=== PATIENT | male | born 1980 | race American Indian/Alaskan Native ===

== ENCOUNTER 2017-05-30 22:34 | Inpatient (IN) | payer OTHER ==
[2017-05-30] MEDS ORDERED: PROVENTIL IH ONE (23:25)
[2017-05-30 23:50] LABS: Basophils % (Auto) 0.4 % (0.0-1.8); Eosinophils % (Auto) 2.2 % (0.0-4.3); Hematocrit 44.3 % (35.5-45.6); Hemoglobin 14.1 gm/dl (11.8-15.2); Mean Corpuscular HGB Conc 32 % (32-34); Mean Corpuscular Hemoglobin 30 pg (28-32); Mean Corpuscular Volume 95 fl (84-94); Platelet Count 261 K/mm3 (140-440); Red Blood Count 4.68 M/mm3 (3.65-5.03); Red Cell Distribution Width 13.6 % (13.2-15.2); White Blood Count 11.7 K/mm3 (4.5-11.0)
[2017-05-31 00:07] LABS: Anion Gap 20 mmol/L; Blood Urea Nitrogen 15 mg/dL (9-20); Carbon Dioxide 26 mmol/L (22-30); Chloride 100.7 mmol/L (98-107); Glucose 117 mg/dL (75-100); Potassium 3.8 mmol/L (3.6-5.0); Sodium 143 mmol/L (137-145)
--- NOTE | 2017-05-31 01:17 | Emergency Department Report ---
HPI - General Chief Complaint: Adult Asthma Time Seen by Provider: 05/30/17 23:22 - HPI HPI: This is a 36-year-old Lebanese male presents to the emergency department by EMS from home with complaint of shortness of breath and probable asthma exacerbation. The patient was found at that time to have some tripoding, speaking in short sentences, wheezing and had a pulse ox of 84% on room air. In route he was given 2 g of magnesium sulfate, 125 mg of Solu-Medrol and a 10 mg albuterol treatment. On presentation to the emergency department here he is feeling improved. He denies any fever, chest pain, nausea, vomiting or diaphoresis. He does have a diagnosed history of asthma. He does not have any albuterol inhaler and nebulizer machine at home to use and therefore did not take anything prior to presentation. The patient was at another hospital a few days ago for similar symptoms. He says he has required admission for asthma in the past but never has required intubation. No recent travel or sick contacts at home. He does not have a primary care physician. He says that he is a former smoker having quit 2 weeks ago. ED Past Medical Hx - Past Medical History Previous Medical History?: Yes Hx Asthma: Yes - Surgical History Past Surgical History?: No - Social History Smoking Status: Former Smoker Substance Use Type: Alcohol ED Review of Systems ROS: Stated complaint: ASTHMA Other details as noted in HPI Comment: All other systems reviewed and negative Constitutional: denies: chills, fever Eyes: denies: eye pain, eye discharge, vision change ENT: denies: ear pain, throat pain Respiratory: cough, shortness of breath, wheezing Cardiovascular: denies: chest pain, palpitations Gastrointestinal: denies: abdominal pain, nausea, diarrhea Genitourinary: denies: urgency, dysuria Musculoskeletal: denies: back pain, joint swelling, arthralgia Skin: denies: rash, lesions Neurological: denies: headache, weakness, paresthesias Physical Exam - Physical Exam Vital Signs: Vital Signs 05/30/17 05/30/17 05/31/17 23:44 23:47 00:18 Temperature 98.8 F Pulse Rate 95 H Pulse Rate [ 89 87 Posterior Bilateral Throughout] Respiratory 20 Rate Respiratory 18 18 Rate [Posterior Bilateral Throughout] Blood Pressure 105/60 [Left] O2 Sat by Pulse 90 Oximetry Physical Exam: GENERAL: The patient is well-developed well-nourished. HENT: Normocephalic. Atraumatic. Patient has moist mucous membranes. EYES: Extraocular motions are intact. Pupils equal reactive to light bilaterally. NECK: Supple. Trachea is midline. CHEST/LUNGS: Moderate wheezing throughout the chest. There is tachypnea but no excessive muscle use. No conversational dyspnea.. There is no respiratory distress noted. HEART/CARDIOVASCULAR: Regular. There is no tachycardia. There is no gallop rub or murmur. ABDOMEN: Abdomen is soft, nontender. Patient has normal bowel sounds. There is no abdominal distention. SKIN: Skin is warm and dry. NEURO: The patient is awake, alert, and oriented. The patient is cooperative. The patient has no focal neurologic deficits. The patient has normal speech. MUSCULOSKELETAL: There is no tenderness or deformity. There is no limitation range of motion. There is no evidence of acute injury. ED Course Vital Signs 05/30/17 05/30/17 05/31/17 23:44 23:47 00:18 Temperature 98.8 F Pulse Rate 95 H Pulse Rate [ 89 87 Posterior Bilateral Throughout] Respiratory 20 Rate Respiratory 18 18 Rate [Posterior Bilateral Throughout] Blood Pressure 105/60 [Left] O2 Sat by Pulse 90 Oximetry ED Medical Decision Making - Lab Data Result diagrams: 05/30/17 23:32 05/30/17 23:32 - EKG Data -: EKG Interpreted by Me EKG shows normal: sinus rhythm, axis, intervals, QRS complexes (incomplete right bundle branch block), ST-T waves Rate: normal - EKG Data When compared to previous EKG there are: previous EKG unavailable Interpretation: other (incomplete right bundle branch block) - Radiology Data Radiology results: image reviewed interpreted by me: Chest x-ray shows some hyperinflation of the lungs and possibly some interstitial lung disease but no obvious pneumonia, pleural effusion and no pneumothorax. - Medical Decision Making The patient received 10 mg of albuterol in route, Solu-Medrol and magnesium. He was feeling improved but still had hypoxia upon presentation here. He was given another 10 mg of albuterol and once again he had some improvement of his bronchospasm. He was reevaluated multiple times but continues to sound very tight and unable to have full expirations. His pulse ox will vary between the low 90s and mid 90s. Labs are unremarkable including a negative d-dimer. Chest x-ray appears more consistent with an emphysema/COPD-like picture but does not show any pneumonia or pleural effusions or pneumothorax. The patient does not necessarily appear in respiratory distress but does not appear improved enough for discharge home and would benefit from serial steroids, breathing treatments and further evaluation. He has been accepted for admission by the hospitalist, Dr. Grover. - Differential Diagnosis Asthma, COPD, Pneumonia, PE Critical Care Time: No Critical care attestation.: If time is entered above; I have spent that time in minutes in the direct care of this critically ill patient, excluding procedure time. ED Disposition Clinical Impression: Asthma exacerbation, Bronchospasm Dyspnea Qualifiers: Dyspnea type: unspecified Qualified Code(s): R06.00 - Dyspnea, unspecified Disposition: OP ADMIT IP TO THIS HOSP Is pt being admited?: Yes Condition: Stable Referrals: PRIMARY CARE, [Primary Care Provider] - 3-5 Days Time of Disposition: 01:31
--- NOTE | 2017-05-31 03:27 | History and Physical Report ---
History of Present Illness Date of examination: 05/31/17 Chief complaint: Shortness of breath History of present illness: 36-year-old -[place] male with past medical history significant for asthma presented to the emergency department complaining of wheezing and shortness of breath. Patient also complains of which is productive of clear sputum. Patient denied fever, chills, chest pain. Patient ran out of his albuterol inhaler. Patient's saturation was 84% on presentation. The emergency department patient was treated for asthma exacerbation and patient showed some improvement but still has SOB and admitted to the floor for further evaluation and management. REVIEW OF SYSTEMS: GENERAL: no weight change, no fatigue, no fever HEAD: no head ache EYES: no blurry vision, no acute visual loss EARS: no hearing loss, no discharge, no earache NOSE: no stuffiness, no sneezing, no discharge MOUTH, THROAT AND NECK: no bleeding gums, no sore throat, no swollen neck CARDIAC: no palpitations, no dyspnea on exertion, no orthopnea, no PND, no edema , no chest pain RESPIRATORY: +shortness of breath, + wheeze, +cough, + sputum, no hemoptysis, + asthma GI: no decreased appetite, no nausea, no vomiting, no dysphagia, no diarrhea, no constipation, no abdominal pain URINARY: no change in frequency, no urgency, no polyuria, no hematuria, no incontinence MUSCULOSKELETAL: no muscle weakness, no pain, no joint stiffness NEUROLOGIC: no loss of sensation/numbness, no tingling, no tremors, no weakness/ paralysis HEMATOLOGIC: no anemia, no easy bruising SKIN: no rashes ENDOCRINE: no heat/cold intolerance, no polyuria, no polydipsia, no thyroid problems, no diabetes PSYCHIATRIC: no anxiety, no depression, no suicidal ideations Past History Past Medical History: other (asthma) Past Surgical History: No surgical history Social history: smoking (smoking 2 weeks ago), full code. denies: alcohol abuse , prescription drug abuse, IV drug use Family history: no significant family history Medications and Allergies Allergies Allergy/AdvReac Type Severity Reaction Status Date / Time No Known Allergies Allergy Verified 05/30/17 23:25 Home Medications Medication Instructions Recorded Confirmed Last Taken Type No Known Home Medications [No 05/31/17 05/31/17 Unknown History Reported Home Medications] Active Meds: Active Medications Albuterol/Ipratropium (Duoneb *Not For Prn Use*) 1 ampul IH QIDRT [facility] Heparin Sodium (Porcine) (Heparin) 5,000 unit SUB-Q Q8HR [facility] Methylprednisolone Sodium Succinate (Solu-Medrol) 60 mg IV TID [facility] Exam - Physical Exam Narrative exam: Not in cardiopulmonary distress. The patient appeared well nourished and normally developed. Vital signs as documented. Head exam is unremarkable. No scleral icterus . Neck is without jugular venous distension, thyromegaly, or carotid bruits. Lungs significant for wheezing all over the chest. Cardiac exam reveals regular rate and Rhythm. First and second heart sounds normal. No murmurs, rubs or gallops. Abdominal exam reveals normal bowel sounds, no masses, no organomegaly and no aortic enlargement. Extremities are nonedematous and both femoral and pedal pulses are normal. MEDICAL DEVICE: Alert and oriented 3. No focal weakness. - Constitutional Vitals: Temp Pulse Resp BP Pulse Ox 98.8 F 87 18 105/60 90 05/30/17 23:44 05/31/17 00:18 05/31/17 00:18 05/30/17 23:44 05/30/17 23:44 Results - Labs CBC & Chem 7: 05/30/17 23:32 05/30/17 23:32 Labs: Laboratory Last Values WBC 11.7 K/mm3 (4.5-11.0) H 05/30/17 23:32 RBC 4.68 M/mm3 (3.65-5.03) 05/30/17 23:32 Hgb 14.1 gm/dl (11.8-15.2) 05/30/17 23:32 Hct 44.3 % (35.5-45.6) 05/30/17 23:32 MCV 95 fl (84-94) H 05/30/17 23:32 MCH 30 pg (28-32) 05/30/17 23:32 MCHC 32 % (32-34) 05/30/17 23:32 RDW 13.6 % (13.2-15.2) 05/30/17 23:32 Plt Count 261 K/mm3 (140-440) 05/30/17 23:32 Lymph % (Auto) 5.0 % (13.4-35.0) L 05/30/17 23:32 [place] % (Auto) 3.2 % (0.0-7.3) 05/30/17 23:32 Eos % (Auto) 2.2 % (0.0-4.3) 05/30/17 23:32 Baso % (Auto) 0.4 % (0.0-1.8) 05/30/17 23:32 Lymph # 0.6 K/mm3 (1.2-5.4) L 05/30/17 23:32 [place] # 0.4 K/mm3 (0.0-0.8) 05/30/17 23:32 Eos # 0.3 K/mm3 (0.0-0.4) 05/30/17 23:32 Baso # 0.1 K/mm3 (0.0-0.1) 05/30/17 23:32 Seg Neutrophils % 89.2 % (40.0-70.0) H 05/30/17 23:32 Seg Neutrophils # 10.4 K/mm3 (1.8-7.7) H 05/30/17 23:32 D-Dimer 167.89 ng/mlDDU (0-234) 05/30/17 23:32 Sodium 143 mmol/L (137-145) 05/30/17 23:32 Potassium 3.8 mmol/L (3.6-5.0) 05/30/17 23:32 Chloride 100.7 mmol/L (98-107) 05/30/17 23:32 Carbon Dioxide 26 mmol/L (22-30) 05/30/17 23:32 Anion Gap 20 mmol/L 05/30/17 23:32 BUN 15 mg/dL (9-20) 05/30/17 23:32 Creatinine 1.0 mg/dL (0.8-1.5) 05/30/17 23:32 Estimated GFR > 60 ml/min 05/30/17 23:32 BUN/Creatinine Ratio 15.00 % 05/30/17 23:32 Glucose 117 mg/dL (75-100) H 05/30/17 23:32 Calcium 9.0 mg/dL (8.4-10.2) 05/30/17 23:32 Troponin T < 0.010 ng/mL (0.00-0.029) 05/30/17 23:32 NT-Pro-B Natriuret Pep 54.13 pg/mL (0-450) 05/30/17 23:32 Assessment and Plan Assessment and plan: Acute hypoxic respiratory failure Asthma exacerbation Medication noncompliance - Patient is started on IV Solu-Medrol, DuoNeb, breathing treatments, oxygen support DVT prophylaxis - Heparin Disposition - admit to medical floor Advance Directives: Yes VTE prophylaxis?: Chemical Plan of care discussed with patient/family: Yes
[2017-05-31] MEDS: HEPARIN SUB-Q SCH ×3 (06:00→21:19)
[2017-05-31] MEDS ORDERED: PROVENTIL IH PRN ×2 (09:07→09:45)
--- NOTE | 2017-05-31 09:14 | XRay Report ---
Single view chest: History: Shortness of breath. Findings: Normal cardiomediastinal silhouette. Trachea is midline. No acute consolidation, pneumothorax or pleural effusion. Impression: No acute cardiopulmonary findings.
[2017-05-31] MEDS: DUONEB *Not for PRN Use IH SCH ×4 (11:33→19:43)
--- NOTE | 2017-05-31 14:15 | Event Note ---
Date: 05/31/17 Patient seen and examined to expiratory movement inspiratory but present on both phase of respiration. We'll continue current treatment and monitor.
--- NOTE | 2017-06-01 01:58 | Admit Criteria Form ---
<DINORAH HO - Last Filed: 06/01/17 01:57> Admission Criteria Documentation: ASTHMA Clinical Indications for Admission to Inpatient Care (Amo/check or initial the applicable condition/criteria) Admission is indicated for ANY ONE of the following (1)(2)(3)(4): [ ]I. Ventilatory support required [ ]II. Peak expiratory flow rate less than 25% of predicted or personal best before treatment [ ]III. Peak expiratory flow rate less than 40% of predicted or personal best after treatment [ ]IV. Peak expiratory flow rate between 40% and 60% of predicted or personal best after treatment, and ANY ONE of the following: [ ]a) History of asthma requiring intubation [ ]b) Hospitalization for asthma within the past year [ ]c) Current or recent use of oral corticosteroids for asthma [ ]d) Use of more than 1 canister of inhaled beta2-agonist in past month [ ]e) Exacerbation due to allergic reaction to food [ ]f) Inadequate access to medical care or medications [ ]g) Adherence to post-discharge asthma regimen cannot be assured (eg, psychosocial problems, poor adherence, no available follow-up care) [ ]V. Hypoxemia [ ]. PaCO2 elevation from baseline by 2 mm Hg (0.27 kPa) or greater [ ]VII. Cyanosis [ ]VIII. Silent chest (absent or markedly diminished breath sounds) [ ]IX. Cardiac dysrhythmia (eg, Bradycardia) [ ]X. Hemodynamic instability [ ]XI. Altered mental status [ ]XII. Radiographic evidence of complication requiring inpatient treatment (eg, pneumonia, pneumothorax) [X]XIII. Inpatient admission required[A] rather than observation care because of ANY ONE of the following: [X]a) Respiratory finding that is severe or persistent (eg, dyspnea, Tachypnea, accessory muscle use) [ ]b) Other condition, treatment, or monitoring requiring inpatient admission Extended stay beyond goal length of stay may be needed for (1)(25)(27): [ ]a) Severe respiratory distress or respiratory failure (22)(23)(28)(29) [ ]b) Secondary causes and complications (24) [ ]c) Status asthmaticus [ ]d) Chronic obstructive asthma (eg, asthma-COPD overlap syndrome) (30) [ ]e) Older patients (65 years or older) (28) [ ]f) Slow resolution [ ]g) Clinically significant exacerbation of comorbidities (e.g., congestive heart failure,atrial fibrillation) The original [facility] content created by [employer] has been revised. The portions of the content which have been revised are identified through the use of italic text or in bold, and [facility] has neither reviewed nor approved the modified material. All other unmodified content is copyright [facility] [employer] Please see references footnoted in the original [facility] [employer] edition 2017 Admission Criteria Met: Yes <NILESH IRVING - Last Filed: 06/02/17 09:59> Admission Criteria Documentation: This admission criteria sheet had no bearing on any medical decision making or clinical decisions from the emergency department and full admission vs observational stay will be decided upon by the hospitalist service and any subsequent specialists seeing this patient.
[2017-06-01] MEDS: HEPARIN SUB-Q SCH ×4 (06:08→23:54)
[2017-06-01] MEDS: DUONEB *Not for PRN Use IH SCH ×4 (07:33→20:10)
--- NOTE | 2017-06-01 08:43 | Progress Note ---
Assessment and Plan Assessment and plan: 36-year-old -Norwegian male with past medical history significant for asthma presented to the emergency department complaining of wheezing and shortness of breath. Patient also complains of which is productive of clear sputum. Patient denied fever, chills, chest pain. Patient ran out of his albuterol inhaler. Patient's saturation was 84% on presentation. The emergency department patient was treated for asthma exacerbation and patient showed some improvement but still has SOB and admitted to the floor for further evaluation and management. Acute hypoxic respiratory failure * Check room air oxygen saturation * Continue Nebs Asthma exacerbation * Continue Nebs * Taper steroids * peak flow meter Medication noncompliance * compliance advised and stressed DVT prophylaxis - Heparin Disposition History Interval history: patient seen and examined still with shortness of breath but improved from yesterday Hospitalist Physical - Constitutional Vitals: Temp Pulse Resp BP Pulse Ox 98.6 F 75 18 96/71 96 06/01/17 07:11 06/01/17 07:52 06/01/17 07:52 06/01/17 07:11 06/01/17 07:11 General appearance: Present: no acute distress, well-nourished - EENT Eyes: Present: PERRL, EOM intact ENT: hearing intact, clear oral mucosa - Neck Neck: Present: supple, normal ROM - Respiratory Respiratory effort: normal Respiratory: bilateral: wheezing - Cardiovascular Rhythm: regular Heart Sounds: Present: S1 & S2 - Extremities Extremities: no ischemia, pulses intact, pulses symmetrical, No edema Peripheral Pulses: within normal limits - Abdominal General gastrointestinal: soft, non-tender, non-distended, normal bowel sounds - Integumentary Integumentary: Present: clear, warm, dry - Psychiatric Psychiatric: appropriate mood/affect, intact judgment & insight, cooperative - Neurologic Neurologic: CNII-XII intact - Allied Health Allied health notes reviewed: nursing Results - Labs CBC & Chem 7: 05/30/17 23:32 05/30/17 23:32 Labs: Laboratory Last Values WBC 11.7 K/mm3 (4.5-11.0) H 05/30/17 23:32 RBC 4.68 M/mm3 (3.65-5.03) 05/30/17 23:32 Hgb 14.1 gm/dl (11.8-15.2) 05/30/17 23:32 Hct 44.3 % (35.5-45.6) 05/30/17 23:32 MCV 95 fl (84-94) H 05/30/17 23:32 MCH 30 pg (28-32) 05/30/17 23:32 MCHC 32 % (32-34) 05/30/17 23:32 RDW 13.6 % (13.2-15.2) 05/30/17 23:32 Plt Count 261 K/mm3 (140-440) 05/30/17 23:32 Lymph % (Auto) 5.0 % (13.4-35.0) L 05/30/17 23:32 [place] % (Auto) 3.2 % (0.0-7.3) 05/30/17 23:32 Eos % (Auto) 2.2 % (0.0-4.3) 05/30/17 23:32 Baso % (Auto) 0.4 % (0.0-1.8) 05/30/17 23:32 Lymph # 0.6 K/mm3 (1.2-5.4) L 05/30/17 23:32 [place] # 0.4 K/mm3 (0.0-0.8) 05/30/17 23:32 Eos # 0.3 K/mm3 (0.0-0.4) 05/30/17 23:32 Baso # 0.1 K/mm3 (0.0-0.1) 05/30/17 23:32 Seg Neutrophils % 89.2 % (40.0-70.0) H 05/30/17 23:32 Seg Neutrophils # 10.4 K/mm3 (1.8-7.7) H 05/30/17 23:32 D-Dimer 167.89 ng/mlDDU (0-234) 05/30/17 23:32 Sodium 143 mmol/L (137-145) 05/30/17 23:32 Potassium 3.8 mmol/L (3.6-5.0) 05/30/17 23:32 Chloride 100.7 mmol/L (98-107) 05/30/17 23:32 Carbon Dioxide 26 mmol/L (22-30) 05/30/17 23:32 Anion Gap 20 mmol/L 05/30/17 23:32 BUN 15 mg/dL (9-20) 05/30/17 23:32 Creatinine 1.0 mg/dL (0.8-1.5) 05/30/17 23:32 Estimated GFR > 60 ml/min 05/30/17 23:32 BUN/Creatinine Ratio 15.00 % 05/30/17 23:32 Glucose 117 mg/dL (75-100) H 05/30/17 23:32 Calcium 9.0 mg/dL (8.4-10.2) 05/30/17 23:32 Troponin T < 0.010 ng/mL (0.00-0.029) 05/30/17 23:32 NT-Pro-B Natriuret Pep 54.13 pg/mL (0-450) 05/30/17 23:32 - Imaging and Cardiology Chest x-ray: image reviewed (no acute pathology)
[2017-06-02] MEDS: HEPARIN SUB-Q SCH ×2 (06:06→14:05)
[2017-06-02] MEDS: DUONEB *Not for PRN Use IH SCH ×3 (07:24→13:56)
[2017-06-02 07:59] VITALS: BP 104/65
[2017-06-02] MEDS ORDERED: BROVANA NEBU IH SCH (08:00)
[2017-06-02] MEDS ORDERED: PULMICORT IH SCH (08:00)
--- NOTE | 2017-06-02 10:18 | Discharge Summary ---
Providers - Providers Date of Admission: 05/31/17 03:18 Attending physician: TRACY BIRD MD Primary care physician: [facility]ER[facility]IST Hospitalization Condition: Stable Hospital course: 36-year-old -Micron[place] male with past medical history significant for asthma presented to the emergency department complaining of wheezing and shortness of breath. Patient also complains of which is productive of clear sputum. Patient denied fever, chills, chest pain. Patient ran out of his albuterol inhaler. Patient's saturation was 84% on presentation. The emergency department patient was treated for asthma exacerbation and patient showed some improvement but still has SOB and admitted to the floor for further evaluation and management. Acute hypoxic respiratory failure * Check room air oxygen saturation * Continue Nebs Asthma exacerbation * Continue Nebs * Taper steroids * peak flow meter Medication noncompliance * compliance advised and stressed DVT prophylaxis - Heparin Disposition Disposition: DC-01 TO HOME OR SELFCARE Exam - Constitutional Vitals: Temp Pulse Resp BP Pulse Ox 98.6 F 86 16 104/65 98 06/02/17 07:20 06/02/17 07:38 06/02/17 07:38 06/02/17 07:20 06/02/17 07:37 Plan Activity: advance as tolerated, fall precautions Diet: regular Special Instructions: record daily BP diary Follow up with: PRIMARY CARE, [Primary Care Provider] - 3-5 Days Prescriptions: ALBUTEROL Inhaler [ProAir HFA Inhaler] 2 puff IH QID PRN 30 Days PRN Reason: Shortness Of Breath Prednisone [predniSONE 10 mg (6-Day Pack, 21 Tabs)] 10 mg PO .TAPER #1 tab.ds.pk
== END 2017-06-02 15:30 | disposition home or self-care (01) | DRG 189 ==
LOC: EDBD → ED 22:34 → 3A 05-31 03:18 → UNDODISIN 05-31 09:30 → 3A 05-31 09:45
PROVIDERS: ADMIT Internal Medicine; ATTEND Internal Medicine
DX: J96.01 Acute respiratory failure with hypoxia (principal); J45.901 Unspecified asthma with (acute) exacerbation; Z87.891 Personal history of nicotine dependence; Z91.14 Patient's other noncompliance with medication regimen
CPT/HCPCS: 36415; 71010; 80048; 83880; 84484; 85025; 85379; 93005; 93010; 94640; J1644; J2920

== ENCOUNTER 2019-05-30 09:36 | Emergency (ER) | payer SELFPAY ==
[2019-05-30 10:04] VITALS: BP 95/68
[2019-05-30] MEDS ORDERED: ATROVENT IH ONE (10:43)
[2019-05-30] MEDS ORDERED: PROVENTIL IH ONE (10:43)
--- NOTE | 2019-05-30 10:46 | Emergency Department Report ---
ED Asthma HPI - General Chief Complaint: Adult Asthma Stated Complaint: JUNI Time Seen by Provider: 05/30/19 10:40 Source: patient Mode of arrival: Ambulatory Limitations: No Limitations - History of Present Illness MD Complaint: shortness of breath, wheezing -: days(s) (3) Asthma History: childhood onset Context: none known - Related Data Current Asthma Therapy: inhaled bronchodilator Previous Rx's Medication Instructions Recorded Last Taken Type ALBUTEROL Inhaler (OR & NICU) 2 puff IH QID PRN 30 Days 06/02/17 Unknown Rx [ProAir HFA Inhaler] inhalation Prednisone [predniSONE 10 mg 10 mg PO .TAPER #1 tab.ds.pk 06/02/17 Unknown Rx (6-Day Pack, 21 Tabs)] Allergies Allergy/AdvReac Type Severity Reaction Status Date / Time No Known Allergies Allergy Verified 05/30/17 23:25 ED Review of Systems ROS: Stated complaint: JUNI Other details as noted in HPI Comment: All other systems reviewed and negative Constitutional: denies: chills, fever Respiratory: denies: cough, shortness of breath, SOB with exertion, wheezing Cardiovascular: denies: chest pain, palpitations Gastrointestinal: denies: abdominal pain, nausea, vomiting Musculoskeletal: denies: back pain Neurological: denies: headache, weakness, numbness, paresthesias, confusion ED Past Medical Hx - Past Medical History Hx Asthma: Yes - Surgical History Past Surgical History?: No - Social History Smoking Status: Current Every Day Smoker Substance Use Type: None - Medications Home Medications: Home Medications Medication Instructions Recorded Confirmed Last Taken Type ALBUTEROL Inhaler (OR & NICU) 2 puff IH QID PRN 30 Days 06/02/17 Unknown Rx [ProAir HFA Inhaler] inhalation Prednisone [predniSONE 10 mg 10 mg PO .TAPER #1 tab.ds.pk 06/02/17 Unknown Rx (6-Day Pack, 21 Tabs)] ED Physical Exam - General Limitations: No Limitations General appearance: alert, in no apparent distress - Head Head exam: Present: atraumatic - Eye Eye exam: Present: normal appearance, PERRL - ENT ENT exam: Present: normal exam, normal orophraynx, mucous membranes moist - Neck Neck exam: Present: normal inspection, full ROM. Absent: tenderness, meningismus, lymphadenopathy, thyromegaly - Respiratory Respiratory exam: Present: wheezes. Absent: respiratory distress, rales, rhonchi, chest wall tenderness, accessory muscle use, decreased breath sounds, prolonged expiratory - Cardiovascular Cardiovascular Exam: Present: regular rate, normal rhythm, normal heart sounds. Absent: bradycardia, tachycardia, diastolic murmur - GI/Abdominal GI/Abdominal exam: Present: soft, normal bowel sounds. Absent: distended, tenderness, guarding, rebound, rigid, organomegaly, mass, bruit, pulsatile mass, hernia - Extremities Exam Extremities exam: Present: normal inspection, full ROM, normal capillary refill. Absent: pedal edema, calf tenderness - Back Exam Back exam: Present: normal inspection, full ROM. Absent: CVA tenderness (R), CVA tenderness (L) - Neurological Exam Neurological exam: Present: alert, oriented X3, CN II-XII intact, normal gait. Absent: reflexes normal - Skin Skin exam: Present: warm, intact, normal color ED Course Vital Signs 05/30/19 05/30/19 10:02 12:04 Temperature 98.4 F Pulse Rate 86 Pulse Rate [ 85 Posterior Bilateral Throughout] Respiratory 20 Rate Respiratory 20 Rate [Posterior Bilateral Throughout] Blood Pressure 95/68 O2 Sat by Pulse 98 Oximetry ED Medical Decision Making - Medical Decision Making Patient received albuterol and Atrovent. Patient stated that he is feeling much better. Patient stated that he is out of his nebulizer inhaler. Patient also given prednisone and advised to follow-up with his primary care physician in the next 2-3 days and to return to the ER if symptoms are not improved. Critical care attestation.: If time is entered above; I have spent that time in minutes in the direct care of this critically ill patient, excluding procedure time. ED Disposition Clinical Impression: Asthma exacerbation, Bronchospasm Disposition: DC-01 TO HOME OR SELFCARE Is pt being admited?: No Condition: Stable Instructions: Asthma (ED) Referrals: [facility] [Provider Group] - 3-5 Days
== END 2019-05-30 13:00 | disposition home or self-care (01) ==
LOC: ED 09:36
DX: J45.901 Unspecified asthma with (acute) exacerbation (principal); F17.200 Nicotine dependence, unspecified, uncomplicated; Z79.899 Other long term (current) drug therapy
CPT/HCPCS: 94644

== ENCOUNTER 2020-05-10 19:23 | Emergency (ER) | payer SELFPAY ==
--- NOTE | 2020-05-10 20:18 | Event Note ---
ED Screening Note Date of service: 05/10/20 Time: 20:17 ED Screening Note: 39 y o male presents with sob, cough x 3 days possible sick contact hx of asthma This initial assessment/diagnostic orders/clinical plan/treatment(s) is/are subject to change based on patients health status, clinical progression and re- assessment by fellow clinical providers in the ED. Further treatment and workup at subsequent clinical providers discretion. Patient/guardian urged not to elope from the ED as their condition may be serious if not clinically assessed and managed. Initial orders include: cxr
--- NOTE | 2020-05-10 20:48 | XRay Report ---
CHEST 2 VIEWS INDICATION / CLINICAL INFORMATION: sob. COMPARISON: Chest radiograph 05/30/2017 FINDINGS: SUPPORT DEVICES: None. HEART / MEDIASTINUM: No significant abnormality. LUNGS / PLEURA: No significant pulmonary or pleural abnormality. No pneumothorax. ADDITIONAL FINDINGS: No significant additional findings. IMPRESSION: 1. No acute findings. Signer Name: Lindy Osborn MD Signed: 05/10/2020 8:44 PM Workstation Name: [id number]
[2020-05-10 23:22] VITALS: BP 113/76
[2020-05-11] MEDS ORDERED: dexAMETHasone 20 MG/5 ML VIAL IM ONE (00:49)
[2020-05-11] MEDS ORDERED: ALBUTEROL 2.5 MG/3 ML NEBU IH ONE (00:49)
[2020-05-11] MEDS ORDERED: IPRATROPIUM/ALBUTEROL SULFATE 3 ML AMPUL.NEB IH ONE (02:18)
--- NOTE | 2020-05-11 02:43 | Emergency Department Report ---
ED Asthma HPI - General Chief Complaint: Upper Respiratory Infection Stated Complaint: SOB/COUGH/ASTHMA Time Seen by Provider: 05/11/20 00:39 Source: patient Mode of arrival: Ambulatory Limitations: No Limitations - History of Present Illness Initial Comments: Patient 39-year-old male who presents for Shortness of breath and wheezing x4 days. Patient denies fevers or chills no nausea vomiting no suspicious contacts. Patient states cough is thick yellow . He denies shortness of breath however O2 sat remain ove5. Patient is AO x3 ambulatory in ed with nad. TITUS Complaint: "asthma attack" Onset/Timin -: days(s) Asthma History: childhood onset Severity: moderate Context: recent URI Associated Symptoms: none. denies: fever, leg edema - Related Data Current Asthma Therapy: none Previous Rx's Medication Instructions Recorded Last Taken Type Albuterol Mdi (or & Nicu Only) 2 puff IH QID PRN 30 Days 06/02/17 Unknown Rx [ProAir HFA Inhaler] inhalation Prednisone [predniSONE 10 mg 10 mg PO .TAPER #1 tab.ds.pk 06/02/17 Unknown Rx (6-Day Pack, 21 Tabs)] Prednisone [predniSONE 10 mg 10 mg PO .TAPER #1 tab.ds.pk 05/30/19 Unknown Rx (6-Day Pack, 21 Tabs)] ALBUTEROL NEB's [Proventil 0.083% 2.5 mg IH Q6HR #1 ampul 05/11/20 Unknown Rx NEBS] Albuterol Mdi (or & Nicu Only) 2 puff IH QID PRN #1 inhalation 05/11/20 Unknown Rx [ProAir HFA Inhaler] Azithromycin [Zithromax Z-DEEPTHI] 250 mg PO DAILY #6 tab 05/11/20 Unknown Rx Ibuprofen [Motrin 800 MG tab] 800 mg PO Q8HR PRN #30 tablet 05/11/20 Unknown Rx predniSONE [Deltasone] 40 mg PO QDAY 5 Days #10 tab 05/11/20 Unknown Rx Allergies Allergy/AdvReac Type Severity Reaction Status Date / Time No Known Allergies Allergy Verified 05/30/17 23:25 ED Review of Systems ROS: Stated complaint: SOB/COUGH/ASTHMA Other details as noted in HPI Constitutional: denies: chills, fever Eyes: denies: eye pain, eye discharge, vision change ENT: denies: ear pain, throat pain, dental pain, hearing loss Respiratory: cough, shortness of breath, wheezing Cardiovascular: dyspnea on exertion. denies: chest pain, palpitations Endocrine: no symptoms reported Gastrointestinal: denies: abdominal pain, nausea, vomiting, diarrhea Genitourinary: denies: as per HPI ED Past Medical Hx - Past Medical History Hx Asthma: Yes - Social History Smoking Status: Current Every Day Smoker Substance Use Type: None - Medications Home Medications: Home Medications Medication Instructions Recorded Confirmed Last Taken Type Albuterol Mdi (or & Nicu Only) 2 puff IH QID PRN 30 Days 06/02/17 Unknown Rx [ProAir HFA Inhaler] inhalation Prednisone [predniSONE 10 mg 10 mg PO .TAPER #1 tab.ds.pk 06/02/17 Unknown Rx (6-Day Pack, 21 Tabs)] Prednisone [predniSONE 10 mg 10 mg PO .TAPER #1 tab.ds.pk 05/30/19 Unknown Rx (6-Day Pack, 21 Tabs)] ALBUTEROL NEB's [Proventil 0.083% 2.5 mg IH Q6HR #1 ampul 05/11/20 Unknown Rx NEBS] Albuterol Mdi (or & Nicu Only) 2 puff IH QID PRN #1 inhalation 05/11/20 Unknown Rx [ProAir HFA Inhaler] Azithromycin [Zithromax Z-DEEPTHI] 250 mg PO DAILY #6 tab 05/11/20 Unknown Rx Ibuprofen [Motrin 800 MG tab] 800 mg PO Q8HR PRN #30 tablet 05/11/20 Unknown Rx predniSONE [Deltasone] 40 mg PO QDAY 5 Days #10 tab 05/11/20 Unknown Rx ED Physical Exam - General Limitations: No Limitations General appearance: alert, in no apparent distress - Head Head exam: Present: atraumatic, normocephalic - Eye Eye exam: Present: normal appearance, PERRL, EOMI Pupils: Present: normal accommodation - ENT ENT exam: Present: normal orophraynx, mucous membranes moist, TM's normal bilaterally, normal external ear exam - Neck Neck exam: Present: normal inspection, tenderness, meningismus, lymphadenopathy, thyromegaly - Respiratory Respiratory exam: Present: normal lung sounds bilaterally, wheezes, rhonchi. Absent: respiratory distress, rales, stridor, chest wall tenderness - Cardiovascular Cardiovascular Exam: Present: regular rate, normal rhythm, normal heart sounds. Absent: systolic murmur, diastolic murmur, rubs, gallop - GI/Abdominal GI/Abdominal exam: Present: soft, normal bowel sounds. Absent: distended, tenderness, guarding, rebound, bruit, hernia - Rectal Rectal exam: Present: deferred, normal inspection. Absent: normal rectal tone, decreased rectal tone - Extremities Exam Extremities exam: Present: normal inspection, full ROM. Absent: tenderness - Back Exam Back exam: Present: normal inspection, full ROM, CVA tenderness (R), CVA tenderness (L). Absent: tenderness - Neurological Exam Neurological exam: Present: alert, oriented X3 - Psychiatric Psychiatric exam: Present: normal affect - Skin Skin exam: Present: warm, dry, intact, normal color. Absent: rash ED Course Vital Signs 05/10/20 20:17 Temperature 98.2 F Pulse Rate 90 Respiratory 20 Rate Blood Pressure 113/76 O2 Sat by Pulse 89 Oximetry ED Medical Decision Making - Medical Decision Making This is straightforward asthma exacerbation patient is alert oriented amatory in ED from room to bathroom and back to room without facemask patient's O2 sat is 98% at this time respirations are 16. Patient with no acute distress . / Critical care attestation.: If time is entered above; I have spent that time in minutes in the direct care of this critically ill patient, excluding procedure time. ED Disposition Clinical Impression: Asthma Qualifiers: Asthma severity: moderate Asthma persistence: unspecified Asthma complication type: with acute exacerbation Qualified Code(s): J45.901 - Unspecified asthma with (acute) exacerbation Asthma exacerbation Qualifiers: Asthma severity: moderate Asthma persistence: persistent Qualified Code(s): J45.41 - Moderate persistent asthma with (acute) exacerbation Disposition: DC-01 TO HOME OR SELFCARE Is pt being admited?: No Does the pt Need Aspirin: No Condition: Stable Instructions: Asthma (ED) Prescriptions: predniSONE [Deltasone] 40 mg PO QDAY 5 Days #10 tab Ibuprofen [Motrin 800 MG tab] 800 mg PO Q8HR PRN #30 tablet PRN Reason: pain Albuterol Mdi (or & Nicu Only) [ProAir HFA Inhaler] 2 puff IH QID PRN #1 inhalation PRN Reason: Shortness Of Breath ALBUTEROL NEB's [Proventil 0.083% NEBS] 2.5 mg IH Q6HR #1 ampul Azithromycin [Zithromax Z-DEEPTHI] 250 mg PO DAILY #6 tab Forms: Work/School Release Form(ED) Time of Disposition: 03:05
== END 2020-05-11 03:10 | disposition home or self-care (01) ==
LOC: ED 19:23
DX: J45.901 Unspecified asthma with (acute) exacerbation (principal); F17.200 Nicotine dependence, unspecified, uncomplicated; Z79.899 Other long term (current) drug therapy
CPT/HCPCS: 71046; 96372; 99283; J1100; 94640

== ENCOUNTER 2021-04-22 10:12 | Emergency (ER) | payer SELFPAY ==
[2021-04-22 11:55] LABS: Basophils # (Auto) 0.1 K/mm3 (0.0-0.1); Basophils % (Auto) 1.3 % (0.0-1.8); Eosinophils # (Auto) 0.4 K/mm3 (0.0-0.4); Eosinophils % (Auto) 7.2 % (0.0-4.3); Hematocrit 43.5 % (35.5-45.6); Hemoglobin 14.6 gm/dl (11.8-15.2); Lymphocytes # (Auto) 1.5 K/mm3 (1.2-5.4); Lymphocytes % (Auto) 31.3 % (13.4-35.0); Mean Corpuscular HGB Conc 34 % (32-34); Mean Corpuscular Volume 95 fl (84-94); Monocytes # (Auto) 0.5 K/mm3 (0.0-0.8); Monocytes % (Auto) 9.8 % (0.0-7.3); Platelet Count 233 K/mm3 (140-440); Red Blood Count 4.58 M/mm3 (3.65-5.03); Red Cell Distribution Width 13.3 % (13.2-15.2)
[2021-04-22 12:23] LABS: Alanine Aminotransferase 23 units/L (7-56); BUN/Creatinine Ratio 10; Blood Urea Nitrogen 11 mg/dL (9-20); Calcium 9.7 mg/dL (8.4-10.2); Hemolysis Index 3
[2021-04-22 13:37] LABS: Hyaline Casts,Urine 1 /LPF; Mucus,Urine FEW /HPF
[2021-04-22 13:44] LABS: Bilirubin,Urine NEG (Negative); Blood,Urine NEG (Negative); Color,Urine Yellow (Yellow)
--- NOTE | 2021-04-22 13:57 | Emergency Department Report ---
ED N/V/D HPI - General Chief complaint: Abdominal Pain Stated complaint: ABD PAINS Time Seen by Provider: 04/22/21 13:39 Source: patient Mode of arrival: Ambulatory Limitations: No Limitations - Related Data Previous Rx's Medication Instructions Recorded Last Taken Type Albuterol Mdi (or & Nicu Only) 2 puff IH QID PRN 30 Days 06/02/17 Unknown Rx [ProAir HFA Inhaler] inhalation Prednisone [predniSONE 10 mg 10 mg PO .TAPER #1 tab.ds.pk 06/02/17 Unknown Rx (6-Day Pack, 21 Tabs)] Prednisone [predniSONE 10 mg 10 mg PO .TAPER #1 tab.ds.pk 05/30/19 Unknown Rx (6-Day Pack, 21 Tabs)] ALBUTEROL NEB's [Proventil 0.083% 2.5 mg IH Q6HR #1 ampul 05/11/20 Unknown Rx NEBS] Albuterol Mdi (or & Nicu Only) 2 puff IH QID PRN #1 inhalation 05/11/20 Unknown Rx [ProAir HFA Inhaler] Azithromycin [Zithromax Z-DEEPTHI] 250 mg PO DAILY #6 tab 05/11/20 Unknown Rx Ibuprofen [Motrin 800 MG tab] 800 mg PO Q8HR PRN #30 tablet 05/11/20 Unknown Rx predniSONE [Deltasone] 40 mg PO QDAY 5 Days #10 tab 05/11/20 Unknown Rx Allergies Allergy/AdvReac Type Severity Reaction Status Date / Time No Known Allergies Allergy Verified 05/30/17 23:25 ED Review of Systems ROS: Stated complaint: ABD PAINS Other details as noted in HPI ED Past Medical Hx - Past Medical History Previous Medical History?: Yes Hx Asthma: Yes - Social History Smoking Status: Current Every Day Smoker Substance Use Type: None - Medications Home Medications: Home Medications Medication Instructions Recorded Confirmed Last Taken Type Albuterol Mdi (or & Nicu Only) 2 puff IH QID PRN 30 Days 06/02/17 Unknown Rx [ProAir HFA Inhaler] inhalation Prednisone [predniSONE 10 mg 10 mg PO .TAPER #1 tab.ds.pk 06/02/17 Unknown Rx (6-Day Pack, 21 Tabs)] Prednisone [predniSONE 10 mg 10 mg PO .TAPER #1 tab.ds.pk 05/30/19 Unknown Rx (6-Day Pack, 21 Tabs)] ALBUTEROL NEB's [Proventil 0.083% 2.5 mg IH Q6HR #1 ampul 05/11/20 Unknown Rx NEBS] Albuterol Mdi (or & Nicu Only) 2 puff IH QID PRN #1 inhalation 05/11/20 Unknown Rx [ProAir HFA Inhaler] Azithromycin [Zithromax Z-DEEPTHI] 250 mg PO DAILY #6 tab 05/11/20 Unknown Rx Ibuprofen [Motrin 800 MG tab] 800 mg PO Q8HR PRN #30 tablet 05/11/20 Unknown Rx predniSONE [Deltasone] 40 mg PO QDAY 5 Days #10 tab 05/11/20 Unknown Rx ED Physical Exam - General Limitations: No Limitations ED Course Vital Signs 04/22/21 11:34 Temperature 97.9 F Pulse Rate 75 Respiratory 18 Rate Blood Pressure 109/69 O2 Sat by Pulse 97 Oximetry ED Medical Decision Making - Lab Data Result diagrams: 04/22/21 11:39 04/22/21 11:39 Critical care attestation.: If time is entered above; I have spent that time in minutes in the direct care of this critically ill patient, excluding procedure time. ED Disposition Condition: Stable
[2021-04-22] MEDS ORDERED: ONDANSETRON 4 MG ODT TAB PO ONE (14:04)
[2021-04-22 15:20] VITALS: BP 105/68
--- NOTE | 2021-04-22 19:52 | Emergency Department Report ---
ED General Adult HPI - General Chief complaint: Abdominal Pain Stated complaint: ABD PAINS Time Seen by Provider: 04/22/21 13:39 Source: patient Mode of arrival: Ambulatory Limitations: No Limitations - History of Present Illness Initial comments: 40-year-old male patient presents emergency department complaints of suprapubic discomfort for a few weeks. Patient states his symptoms began after sexual intercourse. He is concerned he may have been exposed to hepatitis. He has not consulted his primary care provider or the local health department. Patient states he "may have had hepatitis once before, but it went away." Symptoms are unchanged today. Denies fever, chills, nausea, vomiting, diarrhea, testicular pain/swelling, penile discharge, rash, painful urination. Denies all other complaints at this time. - Related Data Previous Rx's Medication Instructions Recorded Last Taken Type Albuterol Mdi (or & Nicu Only) 2 puff IH QID PRN 30 Days 06/02/17 Unknown Rx [ProAir HFA Inhaler] inhalation Prednisone [predniSONE 10 mg 10 mg PO .TAPER #1 tab.ds.pk 06/02/17 Unknown Rx (6-Day Pack, 21 Tabs)] Prednisone [predniSONE 10 mg 10 mg PO .TAPER #1 tab.ds.pk 05/30/19 Unknown Rx (6-Day Pack, 21 Tabs)] ALBUTEROL NEB's [Proventil 0.083% 2.5 mg IH Q6HR #1 ampul 05/11/20 Unknown Rx NEBS] Albuterol Mdi (or & Nicu Only) 2 puff IH QID PRN #1 inhalation 05/11/20 Unknown Rx [ProAir HFA Inhaler] Azithromycin [Zithromax Z-DEEPTHI] 250 mg PO DAILY #6 tab 05/11/20 Unknown Rx Ibuprofen [Motrin 800 MG tab] 800 mg PO Q8HR PRN #30 tablet 05/11/20 Unknown Rx predniSONE [Deltasone] 40 mg PO QDAY 5 Days #10 tab 05/11/20 Unknown Rx Allergies Allergy/AdvReac Type Severity Reaction Status Date / Time No Known Allergies Allergy Verified 05/30/17 23:25 ED Review of Systems ROS: Stated complaint: ABD PAINS Other details as noted in HPI Other: GENERAL: Negative for fever. CARDIOVASCULAR: Negative for chest pain. PULMONARY: Negative for shortness of breath. GASTROINTESTINAL: Positive for suprapubic discomfort MUSCULOSKELETAL: Negative for back pain. NEUROLOGICAL: Negative for headache. INTEGUMENTARY: Negative for rash. ED Past Medical Hx - Past Medical History Previous Medical History?: Yes Hx Asthma: Yes - Social History Smoking Status: Current Every Day Smoker Substance Use Type: None - Medications Home Medications: Home Medications Medication Instructions Recorded Confirmed Last Taken Type Albuterol Mdi (or & Nicu Only) 2 puff IH QID PRN 30 Days 06/02/17 Unknown Rx [ProAir HFA Inhaler] inhalation Prednisone [predniSONE 10 mg 10 mg PO .TAPER #1 tab.ds.pk 06/02/17 Unknown Rx (6-Day Pack, 21 Tabs)] Prednisone [predniSONE 10 mg 10 mg PO .TAPER #1 tab.ds.pk 05/30/19 Unknown Rx (6-Day Pack, 21 Tabs)] ALBUTEROL NEB's [Proventil 0.083% 2.5 mg IH Q6HR #1 ampul 05/11/20 Unknown Rx NEBS] Albuterol Mdi (or & Nicu Only) 2 puff IH QID PRN #1 inhalation 05/11/20 Unknown Rx [ProAir HFA Inhaler] Azithromycin [Zithromax Z-DEEPTHI] 250 mg PO DAILY #6 tab 05/11/20 Unknown Rx Ibuprofen [Motrin 800 MG tab] 800 mg PO Q8HR PRN #30 tablet 05/11/20 Unknown Rx predniSONE [Deltasone] 40 mg PO QDAY 5 Days #10 tab 05/11/20 Unknown Rx ED Physical Exam - General Limitations: No Limitations - Other Other exam information: General: Awake and alert. No acute distress. Head: Atraumatic, normocephalic. Eyes: EOMI. Pupils are equal and round. Normal sclera and conjunctiva. ENT: Oral mucosa is moist. Normal pharyngeal exam. Neck: Supple. No lymphadenopathy. Pulmonary: No respiratory distress. Clear to auscultation bilaterally. Cardiac: Regular rate and rhythm. Pulses are palpable and equal bilaterally. No lower extremity cyanosis or edema. Skin: Warm and dry. No rashes. Abdomen: Soft, non-tender, non-protuberant. No guarding, rigidity, or rebound. Bowel sounds are normal. No organomegaly or masses noted. Back: Normal alignment. No CVA tenderness. Extremities: Symmetrical. Full range of motion intact. Neurological: Alert and oriented, appropriately interactive, no focal deficits. Psych: Cooperative. Appropriate mood and affect. Speech is evenly metered. Thoughts are logically construed. ED Course Vital Signs 04/22/21 04/22/21 11:34 15:18 Temperature 97.9 F 98.6 F Pulse Rate 75 86 Respiratory 18 16 Rate Blood Pressure 109/69 Blood Pressure 105/68 [Right] O2 Sat by Pulse 97 98 Oximetry ED Medical Decision Making - Lab Data Result diagrams: 04/22/21 11:39 04/22/21 11:39 - Medical Decision Making Differential diagnosis including but not limited to: appendicitis, bowel obstruction, bowel perforation, diverticulitis, aortic aneurysm/dissection On reevaluation, patient is stable and symptoms have resolved. He has no complaints. Repeat abdominal exam is benign. Labs are unremarkable. He is tolerating oral intake without difficulty. Patient is afebrile, no tachycardia, no distress. No clinical indication for CT of the abdomen/pelvis and/or further diagnostic work-up on an emergent basis at this time. Of note, patient's blood pressure was noted to be elevated in the emergency department. Patient has discussed his blood pressure with his primary care provider on previous visits. He specifically denies chest pain, shortness of breath, palpitations, syncope, headache, vision changes. Neurological exam is nonfocal and remainder of vital signs are stable. No clinical indication for further diagnostic work-up and/or initiation of antihypertensive therapy at this time per ACEP asymptomatic hypertension guidelines. Patient was encouraged to follow-up with primary care provider for blood pressure recheck as well as repeat abdominal assessment this week. Patient expressed understanding and is agreeable to plan of care. Lifestyle modifications recommended. Strict return precautions provided. Repeat exam is unremarkable and benign. History, exam, diagnostic testing, and current condition do not suggest worrisome pathology to warrant further testing, continued ED treatment, admission, or surgical evaluation at this point. Given the low probability of a significant medical illness, it would be more likely to result in harm than benefit to perform further testing at this stage. Discussed findings, presumptive diagnosis, need for follow-up and specific signs/symptoms that should prompt immediate return to the emergency department. Instructions were explained in detail to the patient in addition to giving written discharge information. Patient expressed understanding and was given the opportunity to ask questions, all of which were satisfactorily answered prior to discharge home. Critical care attestation.: If time is entered above; I have spent that time in minutes in the direct care of this critically ill patient, excluding procedure time. ED Disposition Clinical Impression: Possible exposure to STD, Suprapubic discomfort Disposition: TO HOME OR SELFCARE Is pt being admited?: No Does the pt Need Aspirin: No Condition: Stable Instructions: Safe Sex Additional Instructions: Take Tylenol every 4 hours as needed for pain. You must follow-up with your primary care provider and/or local health department for outpatient testing. Return to the emergency department immediately for new or worsening symptoms. Referrals: [facility] MD [Staff Physician] - 3-5 Days [facility] [Provider Group] - 3-5 Days [facility] [Outside] - 3-5 Days Time of Disposition: 19:52
== END 2021-04-22 20:15 | disposition home or self-care (01) ==
LOC: ED 10:12
DX: R10.2 Pelvic and perineal pain (principal); F17.200 Nicotine dependence, unspecified, uncomplicated; J45.909 Unspecified asthma, uncomplicated; Z20.2 Contact with and (suspected) exposure to infections with a predominantly sexual mode of transmission; Z79.899 Other long term (current) drug therapy
CPT/HCPCS: 36415; 80053; 81001; 85025

== ENCOUNTER 2021-06-26 23:34 | Emergency (ER) | payer SELFPAY ==
[2021-06-27] MEDS ORDERED: IPRATROPIUM/ALBUTEROL SULFATE 3 ML AMPUL.NEB IH ONE (00:59)
[2021-06-27] MEDS ORDERED: predniSONE 20 MG TAB PO ONE (00:59)
[2021-06-27] MEDS ORDERED: ALPRAZolam 1 MG TAB PO ONE (00:59)
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
[2021-06-27 01:58] VITALS: BP 124/85
== END 2021-06-27 01:58 | disposition home or self-care (01) ==
LOC: ED 23:34
DX: J45.909 Unspecified asthma, uncomplicated (principal); F41.9 Anxiety disorder, unspecified; F17.200 Nicotine dependence, unspecified, uncomplicated; Z79.899 Other long term (current) drug therapy
CPT/HCPCS: 94640; 99283; J7512